=== PATIENT | male | born 1940 | race Caucasian/White ===

== ENCOUNTER 2019-04-04 12:23 | Emergency (ER) | payer OTHER ==
[2019-04-04 12:28] VITALS: BMI 35.2
--- NOTE | 2019-04-04 13:31 | PDOC ---
History of Present Illness - General Chief Complaint: Shortness of Breath Stated Complaint: SENT BY PCP, weakness, sob, chest pain, cough Time Seen by Provider: 04/04/19 13:29 - History of Present Illness Initial Comments: 04/04/19 14:38 78 y/o M hx of chronic venous insufficiency, NIDDM, memory impairment, migraine , BPH, parkinsons disease presents to ER from PCP for cough and shortness of breath. Per PCP's notes, patient failed outpatient treatment for bronchitis and lower etremity swelling. Poor historian and pcp is not convinced he was compliant with treatment. Per patient, he has had cough and chest pain for the last 3 days. Cough is productive of green phlegm. Experiences chest pain with coughing and pain is located throughout his chest. Has not taken anything for pain at home. He endorses bilateral leg swelling, subjective fever at home and nausea.He denies any hemoptysis, recent surgery/immobilization, Past History - Past Medical History Allergies/Adverse Reactions: Allergies Allergy/AdvReac Type Severity Reaction Status Date / Time ciprofloxacin [From Cipro] Allergy Unknown Verified 04/04/19 12:28 ciprofloxacin HCl Allergy Unknown Verified 04/04/19 12:28 [From Cipro] naproxen sodium Allergy Unknown Verified 04/04/19 12:28 [From Naprelan] Home Medications: Ambulatory Orders Acetaminophen 500 mg PO BID 04/04/19 Albuterol Sulfate [Proair Hfa] 90 mcg IH Q4H PRN 14 Days #1 hfa.aer.ad 04/04/19 Carbidopa/Levodopa 10/100 [Sinemet 10/100 -] 1 each PO DAILY 04/04/19 Furosemide [Lasix] 80 mg PO DAILY 04/04/19 Gabapentin 100 mg PO TID 04/04/19 Ipratropium/Albuterol Sulfate [Iprat-Albut 0.5-3(2.5) mg/3 ml] 3 ml IH ASDIR Melatonin 10 mg PO DAILY 04/04/19 Memantine HCl [Namenda Xr] 14 mg PO DAILY 04/04/19 Naproxen Sodium [Naproxen Sodium ER] 500 mg PO DAILY 04/04/19 Nortriptyline HCl [Pamelor -] 50 mg PO HS 04/04/19 Nortriptyline HCl [Pamelor -] 50 mg PO HS 04/04/19 Omeprazole 40 mg PO DAILY 04/04/19 Propranolol HCl [Propranolol HCl ER] 40 mg PO DAILY 04/04/19 Tamsulosin HCl [Flomax] 0.4 mg PO DAILY 04/04/19 Temazepam [Restoril] 15 mg PO HS 04/04/19 Topiramate 25 mg PO BID 04/04/19 traZODone HCL [Trazodone HCl] 50 mg PO HS 04/04/19 COPD: No Dementia: Yes Diabetes: Yes (PRE) HTN: Yes Other medical history: Arthritis - Surgical History Orthopedic Surgery: Yes (lt knee sx) - Psycho Social/Smoking Cessation Hx Smoking History: Never smoked Have you smoked in the past 12 months: No Information on smoking cessation initiated: No Hx Alcohol Use: No Drug/Substance Use Hx: No Review of Systems - Review of Systems Constitutional: Yes: Fever HEENTM: No: Eye Pain Respiratory: Yes: Cough, Wheezing Cardiac (ROS): Yes: Chest Pain. No: Syncope ABD/GI: Yes: Nausea. No: Vomiting : No: Burning, Dysuria Musculoskeletal: No: Back Pain, Joint Pain Integumentary: No: Bruising, Dryness Neurological: Yes: Headache Hematologic/Lymphatic: No: Anemia, Easy Bleeding *Physical Exam - Vital Signs Last Vital Signs Temp Pulse Resp BP Pulse Ox 97.3 F L 64 19 123/58 L 98 04/04/19 12:26 04/04/19 12:26 04/04/19 12:26 04/04/19 12:26 04/04/19 12:26 - Physical Exam Comments: 04/04/19 14:35 PE: GENERAL: Awake, alert, and fully oriented, in no acute distress HEAD: No signs of trauma, normocephalic, atraumatic EYES: EOMI, sclera anicteric, conjunctiva clear ENT: Auricles normal inspection, hearing grossly normal, nares patent, oropharynx clear without exudates. Moist mucosa NECK: Normal ROM, supple, no lymphadenopathy, JVD, or masses LUNGS: No distress, speaks full sentences, expiratory rhonchi in both lung klein. HEART: Regular rate and rhythm, normal S1 and S2, no murmurs, rubs or gallops, ABDOMEN: Soft, nontender, normoactive bowel sounds. No guarding, no rebound. No masses EXTREMITIES : bilateral leg swelling. 2+ pitting edema (pedal to mid-calf). tender to palpation. 1+ pedal pulses bilaterally NEUROLOGICAL: Cranial nerves II through XII grossly intact. Normal speech, normal gait, no focal sensorimotor deficits SKIN: Warm, Dry, stasis dermatitis lower extremities bilaterally. ED Treatment Course - LABORATORY CBC & Chemistry Diagram: 04/04/19 14:16 04/04/19 14:16 Medical Decision Making - Medical Decision Making 04/04/19 14:44 78 y/o M hx of chronic venous insufficiency, NIDDM, memory impairment, migraine , BPH, parkinsons disease presents to ER from PCP for cough and shortness of breath. pneumonia vs bronchitis vs chf exacerbation vs p.e cbc, cmp, troponin, bnp, ekg, bilateral leg u/s, chest x-ray EKG: normal sinus rhythm, normal EKG 04/04/19 16:22 Labs unremarkable bnp, troponin wnl Impression no evidence of right/lower extremity dvt lymph node in proximal left thigh adjacent to deep femoral vein Discharge - Discharge Information Problems reviewed: Yes Clinical Impression/Diagnosis: Bronchitis Condition: Stable Disposition: HOME - Admission No - Follow up/Referral Referrals: Ishmael Palmer MD [Primary Care Provider] - - Patient Discharge Instructions Patient Printed Discharge Instructions: Acute Bronchitis, DI for Acute Bronchitis Additional Instructions: You were seen in the ER for coughing and wheezing. likely due to bronchitis take medications as prescribed Follow up with your primary care provider Dr. Palmer in the next week RETURN TO THE ER -if wheezing does not improve -you develop increased chest pain, coughing and shortness of breath -you begin to have fevers or chills - Post Discharge Activity
[2019-04-04 14:40] LABS: BASO % 0.8 % (0-2.0); EOS % 3.1 % (0-4.5); HEMATOCRIT 43.1 % (35.4-49); HEMOGLOBIN 14.2 GM/dL (11.7-16.9); LYMPH % 29.5 % (8-40); MCH 29.5 pg (25.7-33.7); MCHC 32.9 g/dl (32.0-35.9); MEAN CELL VOLUME 89.8 fl (80-96); MEAN PLT VOLUME 6.7 fl (7.5-11.1); MONO % 7.6 % (3.8-10.2); PLATELET COUNT 285 K/MM3 (134-434); RDW 16.2 % (11.9-15.9); WHITE BLOOD COUNT 6.8 K/mm3 (4.0-10.0)
[2019-04-04 15:00] LABS: ALBUMIN 3.4 g/dl (3.4-5.0); BILIRUBIN,TOTAL 0.3 mg/dL (0.2-1); BLOOD UREA NITROGEN 8.9 mg/dL (7-18); N-TERMINAL BNP 27.8 pg/ml (5-450); TOT PROT 6.8 g/dl (6.4-8.2)
[2019-04-04] MEDS ORDERED: ALBUTEROL SO4 2.5/IPRATROPIUM 0.5 INH SOL 3 ML VIAL.NEB. NEB ONE ×2 (15:01→15:10)
--- NOTE | 2019-04-04 15:03 | PDOC ---
Documentation entered by Emmie Ledezma SCRIBE, acting as scribe for Shaan Aviles MD. Shaan Aviles MD: This documentation has been prepared by the Brisa parsons Nirvannie, SCRIBE, under my direction and personally reviewed by me in its entirety. I confirm that the documentation accurately reflects all work, treatment, procedures, and medical decision making performed by me. Attending Attestation - Resident Resident Name: [email or web address] - ED Attending Attestation I have performed the following: I have examined & evaluated the patient, The case was reviewed & discussed with the resident, I agree w/resident's findings & plan - HPI HPI: 04/04/19 14:49 The patient is an 78 year old male, with a significant past medical history of DM, HTN, Alzheimer's, Parkinson's, and chronic back, who presents to the emergency department with, shortness of breath and cough. As per PCP, patient has been treated with outpatient antibiotics, however, they are unaware of medication compliance. Allergies: Ciprofloxacin, Naproxen. Primary Care Physician: Dr. Palmer - Physicial Exam PE: 04/04/19 15:00 Patient is awake and alert, well-nourished, in no distress Normocephalic and atraumatic PERRLA, EOMI No JVD Intermittent rhonchi bilaterally at the bases RRR Abdomen soft nontender, nondistended +4 pitting edema lower extremities with chronic stasis dermatitis changes noted Distal pulses are decreased bilaterally - Medical Decision Making 04/04/19 15:01 Patient is an 78-year-old male with multiple comorbidities who presents to the ER with signs and symptoms of acute bronchitis not effectively controlled by outpatient p.o. Levaquin and diuretic. In the ED, patient is awake and alert, well-appearing, in no significant distress. Oxygen saturation is noted to be 100% on room air. Physical exam reveals intermittent rhonchi at the bases bilaterally. Will administer albuterol/Atrovent; Will obtain chest x-ray/CBC/ CMP. Will reassess.
--- NOTE | 2019-04-04 15:59 | EKG ---
Test Reason : Blood Pressure : / mmHG Vent. Rate : 065 BPM Atrial Rate : 065 BPM P-R Int : 148 ms QRS Dur : 088 ms QT Int : 422 ms P-R-T Axes : 054 032 043 degrees QTc Int : 438 ms POOR DATA QUALITY, INTERPRETATION MAY BE ADVERSELY AFFECTED NORMAL SINUS RHYTHM NORMAL ECG NO PREVIOUS ECGS AVAILABLE Confirmed by NAHID CRUZ MD ([id number]) on 04/04/2019 3:56:28 PM Referred By: Confirmed By:NAHID CRUZ MD
[2019-04-04 19:11] VITALS: BP 148/86; PULSE 84; TEMP 98.1
== END 2019-04-04 19:50 | disposition home or self-care (01) ==
LOC: JER 12:23
PROC: 3E0F7GC Introduction of Other Therapeutic Substance into Respiratory Tract, Via Natural or Artificial Opening (ICD-10-PCS; principal; 2019-04-04)
DX: J40 Bronchitis, not specified as acute or chronic (principal); Z88.8 Allergy status to other drugs, medicaments and biological substances; E11.9 Type 2 diabetes mellitus without complications; R41.3 Other amnesia; N40.0 Benign prostatic hyperplasia without lower urinary tract symptoms; G20 Parkinson's disease
CPT/HCPCS: 36415; 71046-TC-FY; 80053; 83880; 84484; 85025; 93005; 93010; 93970-TC; 99285-25